=== PATIENT | female | born 1955 | race Caucasian/White ===

== ENCOUNTER → 2020-01-22 08:31 | Outpatient (CLI) | payer MEDICARE, MEDICAID, SELFPAY ==
--- NOTE | 2020-01-22 08:40 | CT_ITS ---
STUDY: LOW DOSE CT LUNG CANCER SCREENING REASON FOR EXAM: Female, 64 years old. LUNG CANCER SCREENING. 1 ppd x 47 years. COPD RADIATION DOSAGE (If Supplied By Facility): CTDIvol = ( 3.02 ) mGy, DLP = ( 98.92 ) mGycm TECHNIQUE: No contrast was administered. Low dose technique was utilized (average mAS-38 and kVp 120). 1.25 mm axial source images with a slice interval of 1.25-mm were reconstructed in lung windows. 2.5 mm axial source images with a slice interval of 2.5-mm were reconstructed in lung windows. 5.0 mm axial source images with a slice interval of 5.0-mm were reconstructed in soft tissue windows. Nodule measured using lung windows on PACS and/or independent workstation with automated measurement of minimum and maximum diameter. Nodule measurement reported as average diameter rounded to the nearest whole number. Growth is defined as an increase ins size of greater than 1.5 mm. COMPARISON: None. NODULES: There is an 8.5 mm x 10.1 mm calcified granuloma in the anterior aspect of the right lower lobe. Partially calcified granulomas in the lateral aspect of the right upper lobe as well. There is a 5.3 mm nodule in the posterior aspect of the right upper lobe as seen on axial image #106 and coronal image #136. This lies adjacent to the right major fissure. A small calcified nodule is also seen in the superior aspect of the right lower lobe. A 4.3 mm noncalcified nodule in the peripheral lateral aspect of the right middle lobe adjacent to the right minor fissure as well as the pleural space. Emphysema: Right apical scarring with the bullous changes. Mild degree of emphysematous changes more prominent in the upper lobes. Linear scarring in the anterior medial aspect of both the right middle lobe and lingular segment of the left upper lobe. Aorta: Atherosclerotic plaque formation. Coronary arteries: Coronary artery calcification. Mediastinal nodes: Small benign-appearing mediastinal lymph nodes. Other chest and abdominal findings: Degenerative changes of the thoracic spine. CT/Low Dose CT Lung Screening IMPRESSION: Lung-RADS category 2 - Continue annual screening with LDCT in 12 months. IMPORTANT NOTES FOR USE: ACR Lung-RADS Version 1.0 Assessment Categories Release Date: November 05, 2013 Category: Coded 0-4 bases on nodule(s) with highest degree of suspicion. Negative screen is defined as categories 1 and 2; a positive screen is defined as categories 3 and 4. Category 3 and 4A nodules that are unchanged on interval CT should be coded as category 2, and individuals returned to screening in 12 months. Category 4X: Category 3 or 4 nodules with additional imaging findings that increase the suspicion of lung cancer, such as spiculation, GGN that doubles in size in 1 year, enlarged lymph notes, etc. Category Modifiers: S (significant finding unrelated to lung cancer) and C (prior history of treated lung cancer) may be added to the 0-4 Lung-RADS Electronically Signed: Jay Jay Dawson, at 13:35 EDT , Service support ,
== END ==
PROVIDERS: PCP Nurse Practitioner Primary Care; Referring Provider Nurse Practitioner Primary Care; Visit Provider Nurse Practitioner Primary Care
DX: F17.210 Nicotine dependence, cigarettes, uncomplicated (principal); Z12.2 Encounter for screening for malignant neoplasm of respiratory organs
CPT/HCPCS: G0297

== ENCOUNTER 2021-10-06 07:18 | Outpatient (CLI) | payer MEDICARE, SELFPAY ==
--- NOTE | 2021-10-06 07:38 | CT_ITS ---
STUDY: LOW DOSE CT LUNG CANCER SCREENING REASON FOR EXAM: Female, 66 years old. Tobacco Dependency. One pack per day for 49 years. RADIATION DOSAGE (If Supplied By Facility): CTDIvol = ( 3.02 ) mGy, DLP = ( 106.46 ) mGycm TECHNIQUE: No contrast was administered. Low dose technique was utilized (average mAS-38 and kVp 120). 1.25 mm axial source images with a slice interval of 1.25-mm were reconstructed in lung windows. 2.5 mm axial source images with a slice interval of 2.5-mm were reconstructed in lung windows. 5.0 mm axial source images with a slice interval of 5.0-mm were reconstructed in soft tissue windows. Nodule measured using lung windows on PACS and/or independent workstation with automated measurement of minimum and maximum diameter. Nodule measurement reported as average diameter rounded to the nearest whole number. Growth is defined as an increase ins size of greater than 1.5 mm. COMPARISON: Comparison is made with prior study dated 01/22/2020. NODULES: Stable 8.5 mm x 1 cm calcified granuloma in the anterior aspect of the right lower lobe. The previously seen 5.3 mm nodule in the proximal aspect of the right upper lobe is not seen at this time. Emphysema: Mild degree of emphysema. Stable scarring at both lung apices. Endobronchial lesion: Unremarkable. Aorta: Atherosclerotic plaque formation. Coronary arteries: Coronary artery calcification. Heart: Unremarkable Pulmonary artery: Unremarkable Mediastinal nodes: Small benign-appearing mediastinal lymph nodes. Other chest and abdominal findings: CT/Low Dose CT Lung Screening IMPRESSION: Lung-RADS category 2 - Continue annual screening with LDCT in 12 months. IMPORTANT NOTES FOR USE: ACR Lung-RADS Version 1.1 Assessment Categories Release Date: 2018 Category: Coded 0-4 bases on nodule(s) with highest degree of suspicion. Negative screen is defined as categories 1 and 2; a positive screen is defined as categories 3 and 4. Category 3 and 4A nodules that are unchanged on interval CT should be coded as category 2, and individuals returned to screening in 12 months. Category 4X: Category 3 or 4 nodules with additional imaging findings that increase the suspicion of lung cancer, such as spiculation, GGN that doubles in size in 1 year, enlarged lymph notes, etc. Category Modifiers: S (significant finding unrelated to lung cancer) Electronically Signed: Jay Jay Dawson MD at 10:45 EDT ,
[2021-10-06 08:17] VITALS: PULSE 100; PULSE 102; PULSE 87; PULSE 99; O2SAT 88; O2SAT 90; O2SAT 93; O2SAT 94; O2SAT 95; O2SAT 96; O2SAT 97
--- NOTE | 2021-10-06 08:22 | CPS ---
3 minutes into walk pt desated to 88%. Pt was placed on 1lpm and walk restarted. Remainder of walk was on 1 lpm.
--- NOTE | 2021-10-06 10:10 | WT_ITS ---
PSN 6 Minute Walk Test 6 Minute Walk Test 6 Minute Walk Test: 6 Minute Walk Test PSN:6-Minute Walk Test Start: 10/06/21 08:17 Freq: Status: Active Protocol: [id number] Document 10/06/21 08:17 [facility] (Rec: 10/06/21 08:24 [facility] Desktop) 6 Minute Walk Test Date Performed 10/06/21 Time Performed 08:15 Height 5 ft 3 in Weight: 77.111 kg Weight in Pounds 170.[address]: Dr Cabello Assistive device used: None Pre-test Oxygen Delivery Method Room Air Pulse Ox (%) 93 Pulse Rate (60-100 beats/min) 87 Dyspnea Clara Scale (0-10) 0 Exertion Clara Scale (6-20) 6 1st minute Oxygen Delivery Method Room Air Pulse Ox (%) 93 Pulse Rate (60-100 beats/min) 99 2nd minute Oxygen Delivery Method Room Air Pulse Ox (%) 90 Pulse Rate (60-100 beats/min) 100 3rd minute Oxygen Delivery Method Room Air Pulse Ox (%) 88 Pulse Rate (60-100 beats/min) 100 Dyspnea Clara Scale (0-10) 0 4th minute Oxygen Flow Rate (L/min) (L/min) 1 Oxygen Delivery Method Nasal Cannula Pulse Ox (%) 97 Pulse Rate (60-100 beats/min) 99 5th minute Oxygen Flow Rate (L/min) (L/min) 1 Oxygen Delivery Method Nasal Cannula Pulse Ox (%) 94 Pulse Rate (60-100 beats/min) 102 H 6th minute Oxygen Flow Rate (L/min) (L/min) 1 Oxygen Delivery Method Nasal Cannula Pulse Ox (%) 95 Pulse Rate (60-100 beats/min) 102 H Dyspnea Clara Scale (0-10) 3 Exertion Clara Scale (6-20) 12 Reported Symptoms Increased Work of Breathing Post-test Oxygen Flow Rate (L/min) (L/min) 1 Oxygen Delivery Method Nasal Cannula Pulse Ox (%) 96 Pulse Rate (60-100 beats/min) 99 Full Laps Walked 15 Partial Lap, Number of Tiles Walked 11 Total Distance Walked (ft) 896 10/06/21 08:22 Cardiopulmonary Services by Emilia Worthy 3 minutes into walk pt desated to 88%. Pt was placed on 1lpm and walk restarted. Remainder of walk was on 1 lpm. Initialized on 10/06/21 08:22 - END OF NOTE Interpretation Interpretation: The patient was noted to be 93% on room air at rest. The patient did desaturate to 88% in the third minute of walking. Patient was placed on 1 L nasal cannula and was able to complete ambulation. In total, the patient traveled 896 feet over the course of 6 minutes Recommendations Recommendations: The patient requires no supplemental oxygen at rest, but should be using 1 LPM with activity.
== END 2021-10-06 23:59 | disposition home or self-care (01) ==
PROVIDERS: PCP Nurse Practitioner Primary Care; Referring Provider Internal Medicine Critical Care Medicine; Visit Provider Internal Medicine Critical Care Medicine
DX: F17.210 Nicotine dependence, cigarettes, uncomplicated (principal); J44.9 Chronic obstructive pulmonary disease, unspecified
CPT/HCPCS: 71271; 94618

== ENCOUNTER → 2021-11-20 | Outpatient (CLI) | payer MEDICARE, MEDICAID, SELFPAY ==
--- NOTE | 2021-11-20 09:30 | ASPOS_PTH ---
PATIENT: SAM SHIPLEY LOC: LAB U#:[id number] AGE/SX: 66/F ROOM: RE11/20/[address]: Dr. Inder Crandall MD : 1955 BED: DIS: 11/20/2021 SPEC #: [id number] RECD: 11/20/21 10:00 STATUS: AGNIESZKA VEGA #: [id number] ASHLEY: 11/20/21 09:[address]: Inder Crandall DEPT: CYTOLOGY RECD BY: Christine Hart ENTERED: 11/20/21 10:37 SP TYPE: ASP HERE OTHR DR: Bryan Solorzano, [employer]-C Tissues: Neck, NOS Procedures: Surgery Specimen Level IV Cytology Other Fine Needle Asp on Site HEADER OPERATION: Fine needle aspiration, left neck mass PRE-OP DIAGNOSIS: Left neck mass TISSUE SUBMITTED: FNA, left neck mass DIAGNOSIS CYTOLOGY Fine needle aspiration, left neck mass (smears and cell block): 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 AM:bharti 11/23/2021 COMMENT The specimen is evaluated at the time of FNA by Dr. Michael. Immediate Evaluation = Consistent with Warthin's tumor. Reference is made to the patient's previous left neck fine needle aspiration cytology ([id number]) with changes of Warthin?s tumor. CYTOLOGY STUDY Slides are reviewed. CYTOLOGY GROSS Received is 0.25 ml of reddish labeled with the patient's name, and designated left neck mass. Four imprints and three paps are made from the submitted fluid and the rest is added to CytoLyt for cell block preparation. Submitted for cytology study. / AM:bharti 11/20/2021 TC:5 CPT: 06241, 44669, 03537, 84631
== END | disposition home or self-care (01) ==
LOC: LAB 09:27
PROVIDERS: PCP Nurse Practitioner Primary Care; Referring Provider Otolaryngology; Visit Provider Otolaryngology
DX: R22.1 Localized swelling, mass and lump, neck (principal)
CPT/HCPCS: 10021; 88161; 88305

== ENCOUNTER → 2022-02-05 | Outpatient (CLI) | payer MEDICARE, MEDICAID, SELFPAY | END | disposition home or self-care (01) | LOC: PSN 14:06 | PROVIDERS: PCP Nurse Practitioner Primary Care; Referring Provider Otolaryngology; Visit Provider Otolaryngology | DX: Z01.818 Encounter for other preprocedural examination (principal) | CPT/HCPCS: 87635; C9803; U0003; U0005 ==

== ENCOUNTER → 2022-10-08 | Outpatient (CLI) | payer MEDICARE, SELFPAY ==
--- NOTE | 2022-10-08 08:04 | CT_ITS ---
STUDY: LOW DOSE CT LUNG CANCER SCREENING REASON FOR EXAM: Female, 67 years old. Tobacco Dependency RADIATION DOSAGE (If Supplied By Facility): CTDIvol = ( 2.01 ) mGy, DLP = ( 75.25 ) mGycm TECHNIQUE: No contrast was administered. Low dose technique was utilized (average mAS-38 and kVp 120). 1.25 mm axial source images with a slice interval of 1.25-mm were reconstructed in lung windows. 2.5 mm axial source images with a slice interval of 2.5-mm were reconstructed in lung windows. 5.0 mm axial source images with a slice interval of 5.0-mm were reconstructed in soft tissue windows. COMPARISON: Comparison is made with prior examination of October 06, 2021. NODULES: Stable 8.5 mm x 1 cm calcified granuloma in the anterior aspect of the right lower lobe as seen on axial image #98. Emphysema: Hyperinflation. Emphysematous changes more prominent in the upper lobes. Scarring at the right lung apex. Endobronchial lesion: None Aorta: Atherosclerotic plaque formation of the aortic arch. CORONARY ARTERIES: Coronary artery calcification is seen. Heart: Unremarkable Pulmonary artery: Unremarkable Mediastinal nodes: Small mediastinal lymph nodes. Other chest and abdominal findings: CT/Low Dose CT Lung Screening IMPRESSION: Lung-RADS category 2 - Continue annual screening with LDCT in 12 months. IMPORTANT NOTES FOR USE: ACR Lung-RADS Version 1.1 Assessment Categories Release Date: 2018 Category: Coded 0-4 bases on nodule(s) with highest degree of suspicion. Negative screen is defined as categories 1 and 2; a positive screen is defined as categories 3 and 4. Category 3 and 4A nodules that are unchanged on interval CT should be coded as category 2, and individuals returned to screening in 12 months. Category 4X: Category 3 or 4 nodules with additional imaging findings that increase the suspicion of lung cancer, such as spiculation, GGN that doubles in size in 1 year, enlarged lymph notes, etc. Category Modifiers: S (significant finding unrelated to lung cancer) Electronically Signed: Jay Jay Dawson MD at 12:54 EDT ,
== END | disposition home or self-care (01) ==
PROVIDERS: PCP Nurse Practitioner Primary Care; Referring Provider Internal Medicine Critical Care Medicine; Visit Provider Internal Medicine Critical Care Medicine
DX: F17.211 Nicotine dependence, cigarettes, in remission (principal)
CPT/HCPCS: 71271

== ENCOUNTER → 2023-10-10 | Outpatient (CLI) | payer MEDICARE, SELFPAY ==
--- NOTE | 2023-10-10 14:46 | CT_ITS ---
ACR Level 3 findings have been noted. An addendum which confirms receipt of the report will follow. STUDY: LOW DOSE CT LUNG CANCER SCREENING REASON FOR EXAM: Female, 68 years old. smoker. 51 year smoker x1 pack per day. COPD. RADIATION DOSAGE (If Supplied By Facility): CTDIvol = ( 3.02 ) mGy, DLP = ( 99.68 ) mGycm TECHNIQUE: No contrast was administered. Low dose technique was utilized (average mAS-38 and kVp 120). 1.25 mm axial source images with a slice interval of 1.25-mm were reconstructed in lung windows. Coronal and sagittal reformats obtained. COMPARISON: October 08, 2022, October 06, 2021, January 22, 2020 NODULES: Nodule #: 1 Density: Solid Lung location: Medial left upper lobe nodule 2.6 cm from prior Location in series: Series Number: 2 Image: 51 Size - D1 x D2 mm: 6 x 4 mm: 5 mmaverage diameter Margin: Irregular Shape: Oval Calcification: None Fat: None Temporal comparison: Increased in size from 3 mm on prior October 06, 2021 Nodule #: 2 Density: Subcentimeter solid Lung location: Medial left upper lobe just inferior to the apical solid nodule, 2 cm from the medial pleura Location in series: Series Number: 2 Image: 61 Size - D1 x D2 mm: 10 by 6 mm: 80 average diameter Margin: Irregular Shape: Oval Calcification: None Fat: None Temporal comparison: New or increased in size from October 06, 2021 Ill-defined somewhat linear groundglass attenuation the left mid lung posterolaterally atelectasis, axial image 96-98 series 2. Previous centrilobular nodularity lateral left upper lobe no longer seen. Large calcified granuloma in the right upper lobe. Parenchyma: Moderate upper lung predominant centrilobular emphysematous change. No focal consolidation, effusion, or pneumothorax. Endobronchial lesion: No endobronchial lesion. Mild diffuse peribronchial thickening. Aorta: Aortic atherosclerosis without ectasia or intramural hematoma. CORONARY ARTERIES: Coronary artery calcification Heart: No cardiomegaly or pericardial effusion. Severe three-vessel calcified coronary atherosclerosis. Pulmonary artery: Unremarkable pulmonary outflow tract for nonangiogram exam. Mediastinal nodes: Scattered mediastinal lymph nodes are present up to 1 cm short axis prevascular. No bulky hilar adenopathy. Other chest and abdominal findings: Unremarkable thyroid. Unremarkable esophagus. Limited visualization of the upper abdomen without acute finding. CT/Low Dose CT Lung Screening IMPRESSION: Slowly enlarging 5 mm solid nodule medial left upper lobe with slightly more inferior new or enlarging 8 mm nonsolid nodule vs atelectasis. Other centrilobular nodularity has resolved prior CT. Calcified sequela of prior granulomatous disease is again noted. Overall Lung-RADS category 4A - Screening at 3 months with LDCT. Severe three-vessel calcified coronary atherosclerosis. IMPORTANT NOTES FOR USE: ACR Lung-RADS Version 1.1 Assessment Categories Release Date: 2018 Category: Coded 0-4 bases on nodule(s) with highest degree of suspicion. Negative screen is defined as categories 1 and 2; a positive screen is defined as categories 3 and 4. Category 3 and 4A nodules that are unchanged on interval CT should be coded as category 2, and individuals returned to screening in 12 months. Category 4X: Category 3 or 4 nodules with additional imaging findings that increase the suspicion of lung cancer, such as spiculation, GGN that doubles in size in 1 year, enlarged lymph notes, etc. Category Modifiers: S (significant finding unrelated to lung cancer) Electronically Signed: Brian Santillan MD at 4:28 EDT Reading Location ID and State: [facility] / [place] Tel , Service support ,
== END | disposition home or self-care (01) ==
PROVIDERS: PCP Nurse Practitioner Primary Care; Referring Provider Nurse Practitioner Acute Care; Visit Provider Nurse Practitioner Acute Care
DX: Z12.2 Encounter for screening for malignant neoplasm of respiratory organs (principal); F17.210 Nicotine dependence, cigarettes, uncomplicated
CPT/HCPCS: 71271

== ENCOUNTER → 2024-02-04 | Outpatient (CLI) | payer MEDICARE, SELFPAY ==
--- NOTE | 2024-02-04 07:57 | CT_ITS ---
STUDY: CT Chest W/O Contrast Injection 02/05/2024 3:53 PM REASON FOR EXAM: Female, 68 years old. LUNG NODULES Individualized dose optimization techniques were used for this CT. TECHNIQUE: Transaxial imaging was performed without contrast material. COMPARISON: 10.10.23 FINDINGS: There are degenerative changes of the shoulders. There is no pneumothorax. There is no demonstrated pleural abnormality. Pulmonary emphysema changes. There are calcifications of the coronary arteries. Normal mediastinum. Normal hilar regions. Normal pulmonary arteries. There is atherosclerotic calcification of the aortic arch with tortuosity and elongation of the aortic arch and descending thoracic aorta. There are multi-level degenerative changes of the thoracic spine. There are no acute findings of the upper abdomen. Nodule #: 1 Density: Solid Lung location: Medial left upper lobe nodule Location in series: Series Number: 2 Image: 26 Size: 6.7mm Margin: Irregular Shape: Oval Calcification: None Fat: None Temporal comparison: Increased in size from 6mm on prior 10.10.23 Nodule #: 2 Density: Subcentimeter solid Lung location: Medial left upper lobe just inferior to the apical solid nodule Location in series: Series Number: 2 Image: 31 Size: 13mm Margin: Irregular Shape: spiculated Calcification: None Fat: None Temporal comparison: increased in size from 10.10.23 CT/Chest without Contrast IMPRESSION: 2 left upper lobe nodules have increased in size since the prior study. Nodule 1: ACR Lung CT Screening Reporting And Data System (Lung-RADS) score: 3S - Probably Benign. Additional clinically significant or potentially clinically significant findings are described. Recommend low-dose CT (LDCT) in 6 months. Nodule 2: ACR Lung CT Screening Reporting And Data System (Lung-RADS) score: 4X - Very Suspicious. There are additional features or imaging findings that increase the suspicion of malignancy. Recommend chest CT with or without contrast, PET/CT and/or tissue sampling depending on the probability of malignancy and comorbidities. PET/CT may be used when there is a >=8 mm solid component. For new large nodules that develop on an annual repeat screening CT, a 1 month LDCT may be recommended to address potentially infectious or inflammatory conditions. Electronically Signed: Tyrel Monte MD at 16:01 EDT ,
== END | disposition home or self-care (01) ==
PROVIDERS: PCP Nurse Practitioner Primary Care; Referring Provider Internal Medicine Critical Care Medicine; Visit Provider Internal Medicine Critical Care Medicine
DX: R91.1 Solitary pulmonary nodule (principal)
CPT/HCPCS: 71250

== ENCOUNTER → 2024-02-13 | Outpatient (CLI) | payer MEDICARE, SELFPAY ==
[2024-02-13 08:43] LABS: Platelet Count 331 K/mm3 (150-450)
[2024-02-13 08:55] LABS: International Normalized Ratio 0.9; Prothrombin Time (Protime)PT. 12.6 SECONDS (11.7-14.9)
== END | disposition home or self-care (01) ==
PROVIDERS: PCP Nurse Practitioner Primary Care; Referring Provider Nurse Practitioner Acute Care; Visit Provider Nurse Practitioner Acute Care
DX: I48.91 Unspecified atrial fibrillation (principal); R06.02 Shortness of breath
CPT/HCPCS: 36415; 85049; 85610; 85730

== ENCOUNTER → 2024-05-03 | Outpatient (CLI) | payer MEDICARE, SELFPAY ==
--- NOTE | 2024-05-03 07:56 | CT_ITS ---
STUDY: CT CHEST WITHOUT CONTRAST REASON FOR EXAM: Female, 68 years old. High risk patient RADIATION DOSAGE (If Supplied By Facility): CTDIvol = ( 10.69 ) mGy, DLP = ( 366.12 ) mGycm TECHNIQUE: Transaxial imaging was performed without the administration of intravenous contrast material. Multiplanar coronal and sagittal images were reformatted. Individualized dose optimization techniques were used for this CT. COMPARISON: Including February 04, 2024 and October 06, 2021 FINDINGS: CHEST There is emphysema of the lungs. There are 0.6 x 0.5 and 0.8 x 0.7 cm left upper lobe nodules, mildly increased in size compared to the prior exams, series 4 images 24 and 29. There are mild interstitial fibrotic densities. There are calcified granulomas in the left upper lobe. There is no demonstrated pleural abnormality. There are calcifications and endovascular stents. Of the coronary arteries. Normal mediastinum. Normal hilar regions. Normal unenhanced pulmonary arteries. There is atherosclerotic calcification of the aortic arch with tortuosity and elongation of the aortic arch and descending thoracic aorta. There are multi-level degenerative changes of the thoracic spine. There is no demonstrated abnormality of the visualized upper abdomen. CT/Chest without Contrast IMPRESSION: Slow growing left upper lobe nodules. Recommend bronchoscopy and biopsy or continued short-term follow-up for further evaluation. Electronically Signed: Pb Thomas MD at 9:40 EDT ,
== END | disposition home or self-care (01) ==
PROVIDERS: PCP Nurse Practitioner Primary Care; Referring Provider Nurse Practitioner Acute Care; Visit Provider Nurse Practitioner Acute Care
DX: R91.1 Solitary pulmonary nodule (principal)
CPT/HCPCS: 71250

== ENCOUNTER → 2024-08-04 | Outpatient (CLI) | payer MEDICARE, SELFPAY ==
--- NOTE | 2024-08-04 08:00 | CT_ITS ---
STUDY: CT CHEST WITHOUT CONTRAST REASON FOR EXAM: Female, 69 years old. Multiple lung nodules RADIATION DOSAGE (If Supplied By Facility): CTDIvol = ( 11.72 ) mGy, DLP = ( 450.96 ) mGycm TECHNIQUE: Transaxial imaging was performed without the administration of intravenous contrast material. Individualized dose optimization techniques were used for this CT. COMPARISON: None. FINDINGS: Thoracic inlet structures: THYROID: No thyroid lesions. Ultrasound as the goal standard for thyroid imaging if there are any concerns in this region. Esophagus is unremarkable. Chest/lungs: * No change in 1.26 cm dense popcorn calcification of the right middle lobe centrally unchanged since 2021 consistent with benign granuloma. * Stable fibrotic nodule in the medial aspect of the left upper lobe seen on image 27/135 measuring 6.5 mm unchanged since the prior study. * Second area of irregular nodular fibrosis and interstitial thickening in the middle one third aspect and medial region of the left upper lobe measuring 1.64 cm in diameter seen on image 32/135 series 4 is unchanged since the prior exam. * Redemonstration of scattered interstitial fibrotic opacities throughout both lungs * Re-demonstration of mild cystic emphysematous changes bilaterally. * No pneumonic consolidation or active pulmonary edema or pleural effusion is present * No soft tissue nodules or masses or new spiculated lesions are present. There is no demonstrated pleural abnormality. Normal heart and pericardium. There are calcifications of the coronary arteries. Normal mediastinum. Normal hilar regions. Normal unenhanced pulmonary arteries. There is atherosclerotic calcification of the aortic arch with tortuosity and elongation of the aortic arch and descending thoracic aorta. No mediastinal or hilar adenopathy. There are multi-level degenerative changes of the thoracic spine. BONES: No suspicious lytic or blastic abnormality. UPPER ABDOMEN: No acute pathology. CT/Chest without Contrast IMPRESSION: 1. Benign right upper lobe calcified granuloma. Mild cystic emphysematous changes and fibrosis of the lungs. 2. Stable fibrotic nodule in the medial aspect of the left upper lobe seen on image 27/135 measuring 6.5 mm unchanged since the prior study. 3. Second area of irregular nodular fibrosis and interstitial thickening in the middle one third aspect and medial region of the left upper lobe measuring 1.64 cm in diameter seen on image 32/135 series 4 is unchanged since the prior exam. 4. Correlation with PET/CT imaging recommended REFERENCE, ONLY IF CLINICALLY RELEVANT OR IF LUNG NODULES ARE PRESENT: [employer] RECOMMENDATIONS FOR FOLLOW-UP OF SMALL SOLID LUNG NODULES DETECTED INCIDENTALLY ON CT (for PATIENTS ? 35 YEARS OF AGE with no known extra-pulmonary cancer and no clinical evidence of infection). > 8 mm: Low and High Risk - CT at 3, 9, and 24 months; Consider PET or biopsy - CT at 3, 9, and 24 months. Recommendation: CT lung cancer annual screening exam is recommended for patients with a high risk factors for developing lung including current or previous smoking history, COPD, emphysema, and interstitial lung disease. Electronically Signed: Jesse Moe MD at 15:43 EST ,
== END | disposition home or self-care (01) ==
PROVIDERS: PCP Nurse Practitioner Primary Care; Referring Provider Nurse Practitioner Acute Care; Visit Provider Nurse Practitioner Acute Care
DX: R91.8 Other nonspecific abnormal finding of lung field (principal)
CPT/HCPCS: 71250

== ENCOUNTER → 2024-08-28 | Outpatient (CLI) | payer MEDICARE, SELFPAY ==
--- NOTE | 2024-08-28 08:00 | PET_ITS ---
EXAM: PET/CT Study PROCEDURE: Following the intravenous administration of radionucleotide, image acquisition on a dedicated PET/CT unit was performed at one hour post injection. A preliminary CT study encompassing the Skull base, neck, chest, abdomen, pelvis, and proximal thighs was performed for purposes of attenuation correction and anatomic localization. The proximal thighs were also included. CLINICAL HISTORY: 69-year-old female, multiple pulmonary nodules on CT examination. COMPARISON: CT chest 05/03/2024. TECHNIQUE: Approximately 60 minutes following the intravenous administration of [id number], CT scan of the body was performed, without intravenous contrast medium, from the base of the skull down to the middle of the thighs followed by PET scan in same sequence. The CT scan was used for anatomic localization and photon attenuation correction of the PET scan. Utilizing a [employer]ER[employer] workstation, images were reconstructed and viewed in the axial, sagittal and coronal planes. Fused axial CT/SPECT images were also obtained. The blood glucose level was not reported. Additionally, the FDG mCi injection level was not reported. The liver demonstrates a maximum SUV of 4.7. FINDINGS: Physiologic uptake: There may be expected metabolic uptake within the brain, tongue and floor of the mouth and larynx/vocal cords, heart, александр (many normal individuals have hilar uptake in less than 3 nodes with mildly avid hilar nodes less than 2.7 SUV), liver and spleen, system, and GI tract and symmetric muscle uptake. FDG AVID AND NON-AVID LESIONS. Reported avid SUV values (g/mL*) are maximum SUV. HEAD/NECK: Hypermetabolic right salivary gland mass measuring 1.9 x 1.6 cm, demonstrating a maximum SUV of 11.7. CHEST: No obvious hypermetabolic left upper lobe pulmonary nodule, likely secondary to size. ABDOMEN: No hypermetabolic lesion. PELVIS: No hypermetabolic lesion. BONES/SOFT TISSUES: No hypermetabolic lesion. Noncontrast CT finding: Severe coronary artery, thoracic and aortoiliac calcifications. Mild distal colonic diverticulosis. Thoracolumbar spondylosis. PET/PET/CT Tumor Base -Thigh Init IMPRESSION: 1. No hypermetabolic left upper lobe pulmonary nodule, likely secondary to pulm onary nodule size and non-solid morphology. PET-CT is nondiagnostic and recommended bronchoscopy and biopsy or continued sh ort-term follow-up with chest CT as mentioned in prior report. 2. Hypermetabolic right salivary gland mass, most compatible with Warthin's nicolette or. Additional considerations include pleomorphic adenoma or, less likely, neoplasm. Follow-up target ultrasound is recommended for further evaluation. Please note the low-dose CT scan was performed to facilitate PET image reconstr uction and anatomic localization and does not replace a diagnostic CT. Any diagnostic CT requested and performed at the time of the PET will be reported separately. Reading Location: [id number]
== END | disposition home or self-care (01) ==
PROVIDERS: PCP Nurse Practitioner Primary Care; Referring Provider Nurse Practitioner Family; Visit Provider Nurse Practitioner Family
DX: R91.8 Other nonspecific abnormal finding of lung field (principal)
CPT/HCPCS: 78815; A9552